=== PATIENT | female | born 1995 | race Hispanic/Latino ===

== ENCOUNTER 2019-04-25 06:59 | Day surgery (SDC) | payer MEDICAID ==
[2019-04-23 14:06] VITALS: BP 119/65
[~2019-04-25] VITALS: Ht 154.9 cm; Wt 81.8 kg
[2019-04-25] VITALS (14 sets, daily range): BP systolic 114–129; BP diastolic 64–82
[2019-04-25] MEDS ORDERED: LACTATED RINGERS 1000ML 1,000 ML IV ONE (07:39)
[2019-04-25] MEDS ORDERED: SCOPOLAMINE HYDROBROMIDE 1 EACH ADH..PATCH TD ONE (07:56)
[2019-04-25] MEDS ORDERED: GENTAMICIN SULFATE 80 MG/2 ML VIAL ONE (08:12)
[2019-04-25] MEDS ORDERED: CEFAZOLIN SODIUM 1 GM VIAL ONE ×2 (08:12→08:23)
[2019-04-25] MEDS ORDERED: BUPIVACAINE/EPI/PF 0.5% 30ML VIAL IJ ONE (08:13)
[2019-04-25] MEDS ORDERED: BACITRACIN 50,000 UNIT VIAL ONE (08:13)
[2019-04-25] MEDS ORDERED: LIDOCAINE 1%-EPI 1:100,000 20 ML VIAL IJ ONE (08:13)
[2019-04-25] MEDS ORDERED: METHYLENE BLUE 5 MG/ML AMP ONE (08:13)
[2019-04-25] MEDS ORDERED: LIDOCAINE PF 2% 5ML ABBOJECT ONE (08:31)
[2019-04-25] MEDS ORDERED: PROPOFOL 10 MG/ML 20ML VIAL IV ONE (08:32)
[2019-04-25] MEDS ORDERED: MIDAZOLAM HCL 1 MG/ML 2ML VIAL ONE (08:32)
[2019-04-25] MEDS ORDERED: ROCURONIUM 10MG/1ML SYR 10 MG/ML ML ONE (08:32)
[2019-04-25] MEDS ORDERED: FENTANYL CITRATE PF 50 MCG/1 ML 5ML AMP IV ONE (08:33)
[2019-04-25] MEDS ORDERED: EPHEDRINE SULFATE 50 MG/ML AMPULE ONE (08:59)
[2019-04-25] MEDS ORDERED: GLYCOPYRROLATE 1 MG/5 ML SYRINGE ONE (09:10)
[2019-04-25] MEDS ORDERED: DEXAMETHASONE SOD PHOSPHATE 10MG/ML 1ML VIAL ONE (09:10)
[2019-04-25] MEDS ORDERED: NEOSTIGMINE 5MG/5ML SYR IV ONE (09:10)
[2019-04-25] MEDS ORDERED: ONDANSETRON HCL 4 MG/2 ML VIAL ONE (09:10)
[2019-04-25] MEDS ORDERED: KETOROLAC TROMETHAMINE 30MG/ML ONE (10:18)
== END 2019-04-25 12:25 | disposition home or self-care (01) ==
LOC: DAH 06:59
PROVIDERS: ATTEND Plastic Surgery
DX: R22.1 Localized swelling, mass and lump, neck (principal); D23.4 Other benign neoplasm of skin of scalp and neck; G43.909 Migraine, unspecified, not intractable, without status migrainosus; Z87.891 Personal history of nicotine dependence; Z82.49 Family history of ischemic heart disease and other diseases of the circulatory system
CPT/HCPCS: 11426; 81025; 88304; 88305; A4213; A4215; A4221; A4222; A4223; A4452; A4600; A4606; A4649 ×2; A4663; A6204; G0168; J0690 ×2; J1100; J1580; J1885; J2001; J2250; J2405; J2704; J2710; J3010; J3490 ×4; J7120; Q9968